=== PATIENT | female | born 1970 | race Caucasian/White ===

== ENCOUNTER 2016-09-20 12:01 | Emergency (ER) | payer SELFPAY ==
[~2016-09-20] VITALS: Wt 67.5 kg
[~2016-09-20 12:01] MED LIST: IBUP200C11
--- NOTE | 2016-09-20 13:56 | RADRPT ---
PROCEDURE: Right breast ultrasound. CLINICAL INDICATION: Right breast palpable lesion TECHNIQUE: High-resolution sonography of the right breast was performed in the axial and sagittal planes. COMPARISON: No prior study is available for comparison. FINDINGS: In the right breast 6 o'clock position at the site of the palpable lesion, there is a hypoechoic kerline id mass measuring 2.0 x 1.5 cm. The mass has irregular margins. There is no other cystic or solid m ass. The breast parenchyma is otherwise normal. IMPRESSION: 1. Solid 2.0 x 1.5 cm mass in the right breast 6 o'clock position with irregular margins. Ultrasoun d-guided biopsy should be considered. 2. Any further management regarding any breast palpable lesion should be based upon clinical ground s. RPTAT: QQ .Boom Goyal MD, Date Time Electronically viewed and signed by .Boom Goyal MD, on 09/20/2016 13:55 .R/
[2016-09-20] MEDS ORDERED: CEPH-443 PO (15:51)
[2016-09-20] MEDS ORDERED: NAPR-685 PO (15:51)
--- NOTE | 2016-09-20 16:03 | ERD ---
ER Documentation Chief Complaint Date/Time DATE: 09/20/16 TIME: 16:00 Chief Complaint lump on r. breast HPI This 38-year-old female presents emergency room because she has recently noticed lump in her right breast. It is somewhat tender and causes her minimal discomfort. She has had no discharge from the [facility]. She has had no fever and chills. ROS All systems reviewed and are negative except as per history of present illness. Medications Home Meds Active Scripts Naproxen* (Naproxen*) 375 Mg Tablet, 375 MG PO BID, #14 TAB Prov:OLLIE ALFARO DO 09/20/16 Cephalexin* (Keflex*) 500 Mg Capsule, 500 MG PO TID for 7 Days, CAP Prov:OLLIE ALFARO DO 09/20/16 Reported Medications Ibuprofen* (Advil*) 200 Mg Capsule 04/24/10 Allergies Allergies: Coded Allergies: No Known Drug Allergies (Verified Allergy, Mild, 04/24/10) PMhx/Soc History of Surgery: No Anesthesia Reaction: No Hx Neurological Disorder: No Hx Respiratory Disorders: No Hx Cardiac Disorders: No Hx Psychiatric Problems: No Hx Miscellaneous Medical Probl: No Hx Alcohol Use: No Hx Substance Use: No Hx Tobacco Use: No Physical Exam Vitals Vital Signs Date Time Temp Pulse Resp B/P Pulse Ox O2 Delivery O2 Flow Rate FiO2 09/20/16 12:03 99.2 77 20 146/79 99 Physical Exam Const: [] No distress Head: Atraumatic Eyes: Normal Conjunctiva Breast exam: Right breast is normal tissue texture in all quadrants except for the left lower quadrant of the right breast which does have 2 x 2 area of mild erythema as well as an underlying approximately 1.5 x 0.5 cm palpable mass that is mobile. Patient has mild tenderness on palpation of this mass. Procedures/MDM Right back breast mass that does warrant fine-needle biopsy. This can be done as an outpatient. As the patient's mild erythema over them and give her some Keflex in case there is a cellulitis component. Also discharging with naproxen. Breast ultrasound interpretation, right breast: Mass with irregular borders, no fluid collection peer Departure Diagnosis: Primary Impression: Breast mass, right Condition: Stable Patient Instructions: Breast Biopsy, Percutaneous, Breast Mass, Uncertain Cause Referrals: [facility] YOU HAVE RECEIVED A MEDICAL SCREENING EXAM AND THE RESULTS INDICATE THAT YOU DO NOT HAVE A CONDITION THAT REQUIRES URGENT TREATMENT IN THE EMERGENCY DEPARTMENT. FURTHER EVALUATION AND TREATMENT OF YOUR CONDITION CAN WAIT UNTIL YOU ARE SEEN IN YOUR DOCTORS OFFICE WITHIN THE NEXT 1-2 DAYS. IT IS YOUR RESPONSIBILITY TO MAKE AN APPOINTMENT FOR FOLOW-UP CARE. IF YOU HAVE A PRIMARY DOCTOR --you should call your primary doctor and schedule an appointment IF YOU DO NOT HAVE A PRIMARY DOCTOR YOU CAN CALL OUR PHYSICIAN REFERRAL HOTLINE AT IF YOU CAN NOT AFFORD TO SEE A PHYSICIAN YOU CAN CHOSE FROM THE FOLLOWING [facility] [address] [facility] [facility]. [facility] [address] [facility]. [facility] [address] [facility] [facility] [address] [facility]. [facility] [address] [facility]. [facility]. [address] Additional Instructions: Llame al doctor MAANA y schuyler lida MAT PARA DENTRO DE 1-2 ROMERO. Necesita lida biopsy del bulto en el seno. Dgale a la secretaria que nosotros le instruimos hacer esta mat.Avise o llame si benson condicin se empeora antes de la mat. Regresa aqui si peor o no mejor. OLLIE ALFARO DO Sep 20, 2016 16:03
== END 2016-09-20 16:25 | disposition home or self-care (01) ==
LOC: FTE 12:01
DX: N63 Unspecified lump in breast (principal)
CPT/HCPCS: 76641

== ENCOUNTER 2017-04-28 18:38 | Emergency (ER) | END 2017-04-28 20:53 | disposition home or self-care (01) ==